=== PATIENT | female | born 1970 ===

== ENCOUNTER 2021-12-07 06:00 | Outpatient (RCR) | payer BC, SELFPAY | END 2021-12-16 23:59 | disposition home or self-care (01) | LOC: WPT 06:00 | PROVIDERS: Referring Provider Family Medicine; Visit Provider Family Medicine | DX: M79.604 Pain in right leg (principal); M54.30 Sciatica, unspecified side | CPT/HCPCS: 97110; 97161 ==

== ENCOUNTER 2021-12-17 06:00 | Outpatient (RCR) | payer BC, SELFPAY | END 2022-01-15 23:59 | disposition home or self-care (01) | LOC: WPT 06:00 | PROVIDERS: Referring Provider Family Medicine; Visit Provider Family Medicine | DX: M79.604 Pain in right leg (principal); M54.30 Sciatica, unspecified side | CPT/HCPCS: 97110 ==

== ENCOUNTER 2021-12-30 15:53 | Outpatient (CLI) | payer BC, SELFPAY ==
--- NOTE | 2021-12-30 16:15 | MR_ITS ---
WS: [id number] MRI HEAD WITH CONTRAST WITH ATTENTION TO THE INTERNAL AUDITORY CANALS TECHNIQUE: Sagittal T1, T2 axial, T2 axial flair, axial susceptibility weighted imaging, axial diffus ion weighted images, and coronal T2 images were obtained. Pre and post T1 axial and post T1 coronal i mages. ADC and FSPGR images. Post gadolinium images with attention to the internal auditory canals. A xial fiesta imaging. CLINICAL INFORMATION: SENSORINUERAL HEARING LOSS BILAT; TINNITUS; DIZZINESS COMPARISON: None. FINDINGS: No evidence of restricted diffusion to suggest acute ischemia. Ventricular system and basilar cisterns are patent. Mild small vessel changes. No significant parench ymal volume loss. Normal posterior fossa. Normal vascular flow voids at the skull base. No extra-axia l fluid collections. Note of mass or mass effect. Paranasal sinuses and mastoid air cells are well ae rated. No hemosiderin on susceptibly weighted images. Proximal 7th and 8th cranial nerves are normal in appe arance. Normal trigeminal nerve root entry zones. No evidence of enhancing IAC or CP angle mass. Norm al optic chiasm and pituitary infundibulum. Normal cavernous sinuses and Meckel's cave. No abnormal i ntracranial enhancement. Normal dural venous sinuses. MR/MR iac's wo/w con* [id number] IMPRESSION: 1. No evidence of restricted diffusion to suggest acute ischemia. 2. Mild small vessel changes. No significant parenchymal volume loss. 3. Proximal 7th and 8th cranial nerves are normal in appearance. No evidence o f enhancing IAC or CP angle mass. 4. Normal optic chiasm and pituitary infundibulum. 5. No abnormal gadolinium enhancement. 6. Paranasal sinuses and mastoid air cells are well aerated.
== END 2021-12-30 15:54 | disposition home or self-care (01) ==
PROVIDERS: Visit Provider Specialist
DX: H90.3 Sensorineural hearing loss, bilateral (principal); H93.13 Tinnitus, bilateral; R42 Dizziness and giddiness
CPT/HCPCS: 70553; A9577